=== PATIENT | male | born 1965 | race Caucasian/White ===

== ENCOUNTER 2020-07-14 16:42 | Emergency (ER) | payer SELFPAY ==
[~2020-07-14] VITALS: Ht 175.3 cm; Wt 98.7 kg
--- NOTE | 2020-07-14 17:10 | PHYS DOC ---
General Adult EDM: Chief Complaint: NEURO SYMPTOMS/DEFICITS HPI: HPI: History obtained from patient. Patient is a 55-year-old male who presents with chief complaint of tingling sensation of the right foot and right upper extremity. Reports no past medical history. Patient states approximately 4 hours prior to arrival he began developing some numbness and tingling to the base of his right fifth toe. He states this slowly began progressing up his right thigh. He states this resolved and then he suddenly noticed some tingling sensation to the ulnar aspect of his right upper extremity that radiated up to his neck. He states almost all of his symptoms have resolved except for some numbness to the base of his right toe. Denies any history of diabetes. Denies any drug or alcohol usage. Denies any chest pain or shortness of breath. Denies any headaches. Denies any acute vision or hearing changes. Denies vertiginous symptoms. Denies any slurred speech or confusion. Denies any difficulty with ambulation or subway conductor strength. States this is never occurred b efore. Notes he has had mild nausea over the past 24 hours. Denies any history of stroke or coronary artery disease. No other complaints. (DESTINY HASSAN DO) Review of Systems: Review of Systems: Constitutional: Denies fever or chills. [] Eyes: Denies change in visual acuity. [] HENT: Denies nasal congestion or sore throat. [] Respiratory: Denies cough or shortness of breath. [] Cardiovascular: Denies chest pain or edema. [] GI: Denies abdominal pain, nausea, vomiting, bloody stools or diarrhea. [] : Denies dysuria. [] Musculoskeletal: Denies back pain or joint pain. [] Integument: Denies rash. [] Neurologic: Paresthesias Endocrine: Denies polyuria or polydipsia. [] Lymphatic: Denies swollen glands. [] Psychiatric: Denies depression or anxiety. [] (DESTINY HASSAN DO) Heart Score: Risk Factors: Risk Factors: DM, Current or recent (<one month) smoker, HTN, HLP, family hi story of CAD, obesity. Risk Scores: Score 0 - 3: 2.5% MACE over next 6 weeks - Discharge Home Score 4 - 6: 20.3% MACE over next 6 weeks - Admit for Clinical Observation Score 7 - 10: 72.7% MACE over next 6 weeks - Early Invasive Strategies (DESTINY HASSAN DO) Allergies: Allergies: Allergies Coded Allergies Type Severity Reaction Last Updated Verified No Known Drug Allergies 07/14/20 No (DESTINY HASSAN DO) Physical Exam: PE: Constitutional: Well developed, well nourished, no acute distress, non-toxic appearance. [] HENT: Normocephalic, atraumatic, bilateral external ears normal, oropharynx moist, no oral exudates, nose normal. [] Eyes: PERRLA, EOMI, conjunctiva normal, no discharge. [] Neck: Normal range of motion, no tenderness, supple, no stridor. [] Cardiovascular:Heart rate regular rhythm, no murmur [] Lungs & Thorax: Bilateral breath sounds clear to auscultation [] Abdomen: soft, no tenderness, no masses, no pulsatile masses. [] Skin: Warm, dry, no erythema, no rash. [] Back: No tenderness, no CVA tenderness. [] Extremities: No tenderness, no cyanosis, no clubbing, ROM intact, no edema. [] Neurologic: Alert with intact cognitive function. No aphasia, dysarthria, or neglect. GCS 15. Pupils 3 mm briskly reactive b/l. No APD present. Cranial n erves 2-12 grossly intact; no facial asymmetry present, tongue midline, shoulder shrugging strength intact. Strength 5/5 and symmetric throughout. Light touch sensation intact throughout. Cerebellar testing appropriate without evidence of dysdiadochokinesia. DTR's 2+ in all 4 extremities. Negative pronator drift bilaterally. Gait normal Psychologic: Affect normal, judgement normal, mood normal. [] (DESTINY HASSAN DO) EKG: EKG: EKG consistent with normal sinus rhythm. Ventricular rate of 91 bpm. S1Q3T3 present. No acute ischemic changes noted. [] (DESTINY HASSAN DO) Radiology/Procedures: Radiology/Procedures: [facility] [address] [place] [address] IMAGING REPORT Signed PATIENT: EVETTE FIGUEROA ACCOUNT: [id number] : 1965 LOCATION: ER AGE: 55 SEX: M EXAM STATUS: REG ER ORD. PHYSICIAN: DESTINY HASSAN DO REASON: RLE tingling PROCEDURE: CT HEAD WO CONTRAST CT HEAD INDICATION: Right lower extremity tingling COMPARISON: None Available. Exposure: One or more of the following individualized dose reduction techniques were utilized for this examination: 1. Automated exposure control 2. Adjustment of the mA and/or kV according to patient size 3. Use of iterative reconstruction technique TECHNIQUE: 5 mm contiguous axial images were obtained from the skull base to the vertex in both bone and soft tissue algorithm. FINDINGS: No abnormal attenuation within the brain parenchyma. No evidence of acute intracranial hemorrhage. No extra-axial fluid collections. No mass effect or midline shift. Ventricular size is appropriate. Basal cisterns are patent. No fractures identified.Mitchell-white differentiation is preserved.Globes and orbits are within normal limits. Paranasal sinuses and mastoid air cells are clear. IMPRESSION: No acute intracranial findings. Electronically signed by: Reggie Liao MD (07/14/2020 5:51 PM) [id number] DICTATED and SIGNED BY: REGGIE LIAO MD DATE: 07/14/201750 (DESTINY HASSAN DO) Radiology/Procedures: [facility] [address] [facility] [place], [place] [id number] IMAGING REPORT Signed PATIENT: EVETTE FIGUEROA ACCOUNT: [id number] : 1965 LOCATION: ER AGE: 55 SEX: M EXAM STATUS: REG ER ORD. PHYSICIAN: DESTINY HASSAN DO REASON: RLE tingling PROCEDURE: CT HEAD WO CONTRAST CT HEAD INDICATION: Right lower extremity tingling COMPARISON: None Available. Exposure: One or more of the following individualized dose reduction techniques were utilized for this examination: 1. Automated exposure control 2. Adjustment of the mA and/or kV according to patient size 3. Use of iterative reconstruction technique TECHNIQUE: 5 mm contiguous axial images were obtained from the skull base to the vertex in both bone and soft tissue algorithm. FINDINGS: No abnormal attenuation within the brain parenchyma. No evidence of acute intracranial hemorrhage. No extra-axial fluid collections. No mass effect or midline shift. Ventricular size is appropriate. Basal cisterns are patent. No fractures identified.Mitchell-white differentiation is preserved.Globes and orbits are within normal limits. Paranasal sinuses and mastoid air cells are clear. IMPRESSION: No acute intracranial findings. Electronically signed by: Reggie Liao MD (07/14/2020 5:51 PM) [id number] DICTATED and SIGNED BY: REGGIE LIAO MD DATE: 07/14/20 175 (KARTHIKEYAN CHILDS DO) Course & Med Decision Making: Course & Med Decision Making Pertinent Labs and Imaging studies reviewed. (See chart for details) [] Patient is a 55-year-old male who presents with chief complaint of paresthesias to the right lower and right upper extremities that occurred proximately 5 hours prior to arrival. Minus assessment patient has an NIH score of 0. Stroke alert was not called given lack of symptoms and onset of symptoms. CT head imaging unremarkable. Given his abnormal EKG D-dimer was obtained and is pending. Remainder of labs unremarkable. Overall low suspicion for central neurologic cause of his symptoms. I have signed out the patient's emergency department care to Dr. Childs. We discussed the history, physical exam findings, completed and pending laboratory results and imaging studies. We have also discussed the current treatment plan and expected clinical course. Please refer to chart for the patient's remaining emergency department course, final disposition, and clinical impression(s). (DESTINY HASSAN DO) Course & Med Decision Making Patient is a 55-year-old male who presented to ER for evaluation of right foot numbness and tingling sensation, right upper extremity and tingling sensation. At this time patient denies any symptoms. He denied headache, no chest pain, no weakness or numbness anywhere, no slurred speech, no blurry vision. CT scan of the head did not show any acute problem. Patient get up and walk around without any problem. When this physician came into the room to discuss his lab results and his CT scan report patient stated that he want to go home because he feels fine now. This physician advised that patient would need to have an MRI of his brain to evaluate to see if he had a stroke or not, patient preferred to have it done outpatient. Patient would like a referral for neurology so he can follow-up. Again patient declined hospital admission. Patient was given the number of Dr. Kelly, neurologist so he can call tomorrow for follow-up. (KARTHIKEYAN CHILDS DO) Torey Disclaimer: Torey Disclaimer: This electronic medical record was generated, in whole or in part, using a voice recognition dictation system. (DESTINY HASSAN DO) Departure Departure Impression: Primary Impression: Arm paresthesia, right Additional Impression: Right leg paresthesias Disposition: 01 DC HOME SELF CARE/HOMELESS Condition: IMPROVED Referrals: NO PCP (PCP) SOFIE ENG MD PLEASE CALL THIS NEUROLOGIST FOR FOLLOW UP THIS WEEK. TAKE 81 MG ASPIRIN DAILY. Patient Instructions: Paresthesia Additional Instructions: Thank you for visiting our Emergency Department. We appreciate you trusting us with your care. If any additional problems come up don't hesitate to return to visit us. Please follow up with your primary care provider so they can plan additional care if needed and know about the problem that you had. If symptoms worsen come back to the Emergency Department. Any concerning symptoms that start such as chest pain, shortness of air, weakness or numbness on one side of the body, running high fevers or any other concerning symptoms return to the ER. PLEASE TAKE 81 MG ASPIRIN DAILY. PLEASE CALL THE NEUROLOGIST FOR FUTHER EVALUATION WITH MRI OF YOUR BRAIN. NIHSS Stroke Scale NIH Stroke Scale: NIH Stroke Scale Response (Comments) Value Level of Consciousness: 0 Alert/Responsive 0 LOC Questions: 0 Answers both correctly 0 LOC Commands: 0 Performs both tasks 0 Best Gaze: 0 Normal 0 Visual: 0 No visual loss 0 Facial Palsy: 0 Normal, symmetrical 0 Motor - Left Arm 0 No drift 0 Motor - Right Arm 0 No drift 0 Motor - Left Leg 0 No drift 0 Motor: Right Leg 0 No drift 0 Limb Ataxia: 0 Absent 0 Sensory: 1 Mid to moderate loss 1 Best Language: 0 Normal 0 Dysathria: 0 Normal 0 Extinction and Inattention: 0 Normal 0 Total 1 NIH Stroke Scale: NIH Stroke Scale Response (Comments) Value Level of Consciousness: 0 Alert/Responsive 0 LOC Questions: 0 Answers both correctly 0 LOC Commands: 0 Performs both tasks 0 Best Gaze: 0 Normal 0 Visual: 0 No visual loss 0 Facial Palsy: 0 Normal, symmetrical 0 Motor - Left Arm 0 No drift 0 Motor - Right Arm 0 No drift 0 Motor - Left Leg 0 No drift 0 Motor: Right Leg 0 No drift 0 Limb Ataxia: 0 Absent 0 Sensory: 0 No loss 0 Best Language: 0 Normal 0 Dysathria: 0 Normal 0 Extinction and Inattention: 0 Normal 0 Total 0 DESTINY HASSAN DO Jul 14, 2020 17:10 KARTHIKEYAN CHILDS DO Jul 14, 2020 20:23
--- NOTE | 2020-07-14 17:30 | EKG ---
[facility] [address] [place] [address] Test Date: 2020-07-14 Test Time: 17:19:13 Pat Name: EVETTE FIGUEROA Department: Room: Gender: M Patient Safety Officer: : 1965 Requested By: DESTINY HASSAN Order Number: [id number] Reading MD: Hammad Henderson Measurements Intervals [place] Rate: 91 P: 43 [place]: 146 QRS: 26 QRSD: 86 T: -5 QT: 344 QTc: 425 Interpretive Statements SINUS RHYTHM Electronically Signed On 07-15-2020 9:22:38 FOOD AIDE by Hammad Henderson
--- NOTE | 2020-07-14 17:33 | RAD ---
EXAM: CHEST AP ONLY 07/14/2020 5:18 PM CLINICAL INDICATION:Right lower extremity tingling COMPARISON:None TECHNIQUE:AP upright view of the chest FINDINGS:The heart and mediastinum are normal. Lungs are well-expanded. No consolidation, pleural effusion, or pneumothorax. No acute osseous abnormality. Mild leftward curvature of the thoracic spine. IMPRESSION:No acute cardiopulmonary abnormality. Electronically signed by: Chen Davila MD (07/14/2020 5:30 PM) [id number]
--- NOTE | 2020-07-14 17:53 | RAD ---
CT HEAD INDICATION: Right lower extremity tingling COMPARISON: None Available. Exposure: One or more of the following individualized dose reduction techniques were utilized for this examination: 1. Automated exposure control 2. Adjustment of the mA and/or kV according to patient size 3. Use of iterative reconstruction technique TECHNIQUE: 5 mm contiguous axial images were obtained from the skull base to the vertex in both bone and soft tissue algorithm. FINDINGS: No abnormal attenuation within the brain parenchyma. No evidence of acute intracranial hemorrhage. No extra-axial fluid collections. No mass effect or midline shift. Ventricular size is appropriate. Basal cisterns are patent. No fractures identified.Mitchell-white differentiation is preserved.Globes and orbits are within normal limits. Paranasal sinuses and mastoid air cells are clear. IMPRESSION: No acute intracranial findings. Electronically signed by: Reggie Liao MD (07/14/2020 5:51 PM) [id number]
[2020-07-14 18:14] LABS: BASO % 1 % (0-3); EOS # 0.1 x10^3/uL (0.0-0.7); EOS % 2 % (0-3); HEMATOCRIT 44.9 % (39.0-53.0); HEMOGLOBIN 15.6 g/dL (13.0-17.5); LYMPH # 1.7 x10^3/uL (1.0-4.8); LYMPH % 24 % (24-48); MEAN CORPUSCULAR HEMOGLOBIN 30 pg (25-35); MEAN CORPUSCULAR HGB CONC 35 g/dL (31-37); MEAN CORPUSCULAR VOLUME 87 fL (79-100); MONO # 0.7 x10^3/uL (0.0-1.1); MONO % 9 % (0-9); NEUT # 4.7 x10^3/uL (1.8-7.7); NEUT % 65 % (31-73); PLATELET COUNT 189 x10^3/uL (140-400); RED BLOOD COUNT 5.15 x10^6/uL (4.30-5.70); RED CELL DISTRIBUTION WIDTH 13.3 % (11.5-14.5); WHITE BLOOD COUNT 7.2 x10^3/uL (4.0-11.0)
[2020-07-14 18:29] LABS: CALCIUM 9.6 mg/dL (8.5-10.1); CREATININE 1.1 mg/dL (0.7-1.3); GFR 69.2; POTASSIUM 4.1 mmol/L (3.5-5.1)
[2020-07-14 18:35] LABS: ALBUMIN 3.9 g/dL (3.4-5.0); ALBUMIN/GLOBULIN RATIO 1.1 (1.0-1.7); MAGNESIUM 2.2 mg/dL (1.8-2.4); TOTAL BILIRUBIN 0.5 mg/dL (0.2-1.0); TOTAL PROTEIN 7.4 g/dL (6.4-8.2)
[2020-07-14 20:03] VITALS: BP 160/83
== END 2020-07-14 20:51 | disposition home or self-care (01) ==
LOC: ER 16:42
DX: R20.2 Paresthesia of skin (principal); R11.0 Nausea
CPT/HCPCS: 36415; 70450; 71045; 80053; 83735; 84484; 85025; 85379; 93005; 99285